=== PATIENT | male | born 1960 ===

== ENCOUNTER 2017-01-28 09:57 | Day surgery (SDC) | payer OTHER ==
[2017-01-28] MEDS ORDERED: Lactated Ringer's 500 ML IV ONE (11:40)
[2017-01-28] MEDS ORDERED: Propofol 10 mg/ml Inj (20 ML) ONE (11:54)
[2017-01-28 12:37] VITALS: BP 101/67; PULSE 62; RESP 16; TEMP 97; O2SAT 100
== END 2017-01-28 13:21 | disposition home or self-care (01) ==
LOC: H.ENDO 09:57
PROVIDERS: ATTEND Internal Medicine Gastroenterology
DX: Z12.11 Encounter for screening for malignant neoplasm of colon (principal); K64.8 Other hemorrhoids